=== PATIENT | male | born 1995 | race Caucasian/White ===

== ENCOUNTER 2019-09-27 21:40 | Emergency (ER) | payer MEDICAID ==
[~2019-09-27] VITALS: Ht 160 cm; Wt 49.9 kg
[2019-09-27 21:47] VITALS: BP 140/81
--- NOTE | 2019-09-27 21:51 | NUR ---
PT TAKEN TO BED 4
--- NOTE | 2019-09-27 21:53 | NUR ---
Dr. Yap examining patient.
[2019-09-27] MEDS ORDERED: IBUPROFEN 800 MG TAB PO ONE (21:55)
--- NOTE | 2019-09-27 22:03 | NUR ---
PT FELL AND ROLLED HIS ANKLE APPROX I HR AGO. STATES HE HEARD A POP WHEN IT HAPPENED. ANKLE IS SWOLLEN, SKIN INTACT, NO NOTICABLE DEFORMITY. PT ABLE TO MOVE TORS AND PALAPABLE PEDAL PULSE (+3). BED IN LOWEST POSITION ANS SIDERAIL UP X 1 NKA NO MED HX
--- NOTE | 2019-09-27 22:03 | NUR ---
X-RAY AT BEDSIDE
--- NOTE | 2019-09-27 22:58 | NUR ---
francis wrap placed on pt r ankle. +csm
--- NOTE | 2019-09-27 22:59 | NUR ---
pt given instruction on proper use of crutches, and fitted to pt height and arm length.
[2019-09-27 23:07] VITALS: BP 140/81
--- NOTE | 2019-09-27 23:08 | NUR ---
Patient discharged with v/s stable. Written and verbal after care instructions given and explained. Patient alert, oriented and verbalized understanding of instructions. Ambulatory with crutches. All questions addressed prior to discharge. ID band removed. Patient advised to follow up with PMD. Rx of given. Patient educated on indication of medication including possible reaction and side effects. Opportunity to ask questions provided and answered.
== END 2019-09-27 23:08 | disposition home or self-care (01) ==
LOC: MED 21:40
DX: S93.401A Sprain of unspecified ligament of right ankle, initial encounter (principal); W19.XXXA Unspecified fall, initial encounter; Y93.89 Activity, other specified; Y92.89 Other specified places as the place of occurrence of the external cause; Y99.8 Other external cause status
CPT/HCPCS: 73610; 99283